=== PATIENT | female | born 1990 | race American Indian/Alaskan Native ===

== ENCOUNTER 2017-02-14 18:23 | Emergency (ER) | payer OTHER, BC ==
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
[2017-02-14 21:02] LABS: Bilirubin,Urine NEG (Negative); Blood,Urine LG (Negative); Ketones,Urine TR mg/dL (Negative); Leukocyte Esterase,Urine TR (Negative); Nitrite,Urine NEG (Negative)
[2017-02-14 21:20] LABS: Bacteria,Urine 2+ /HPF (Negative); RBC,Urine > 182.0 /HPF (0.0-6.0)
[2017-02-14 22:12] VITALS: BP 114/70
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
== END 2017-02-14 22:25 | disposition home or self-care (01) ==
LOC: ED 18:23
DX: S86.911A Strain of unspecified muscle(s) and tendon(s) at lower leg level, right leg, initial encounter (principal); S20.211A Contusion of right front wall of thorax, initial encounter; V49.49XA Driver injured in collision with other motor vehicles in traffic accident, initial encounter; Y93.9 Activity, unspecified; Y92.9 Unspecified place or not applicable; Y99.9 Unspecified external cause status
CPT/HCPCS: 71010; 81001; 81025; 99283

== ENCOUNTER 2017-12-27 04:58 | Emergency (ER) | payer BC, OTHER ==
[2017-12-27 05:13] VITALS: BP 117/78
[2017-12-27] MEDS ORDERED: MOTRIN PO ONE (05:43)
[2017-12-27] MEDS ORDERED: CLEOCIN PO ONE (05:43)
--- NOTE | 2017-12-27 05:43 | Emergency Department Report ---
ED ENT HPI - General Chief complaint: Dental/Oral Stated complaint: TOOTHACHE,HEADACHE Time Seen by Provider: 12/27/17 05:26 Source: patient Mode of arrival: Ambulatory Limitations: No Limitations - History of Present Illness Initial comments: Patient here complaining of toothache to her left lower back tooth out 4 days. She says she has an appointment with a dentist but she couldn't wait because she is having pain 10 out of 10 that is achy and throbbing. Patient also reports that she feels like the pain is gone up to her left side of her head. Denies any injury or trauma. Denies any dizziness or blurred vision. Denies any nausea or vomiting. No alleviating factor either after trying Motrin, Aleve and Tylenol. Pain exacerbated by talking to needed. Denies any sore throat or drooling. Denies this on the tongue. Denies any facial swelling. Patient says she had wisdom. Along the right side in the past and she thinks she needs some work done on her wisdom tooth on the left side. Denies any respiratory symptoms. Denies any chest pain. Denies any nasal congestion or runny nose. MD complaint: tooth pain Onset/Timin -: days(s) Location: tooth # (left lower back tooth) Severity: severe Severity scale (0 -10): 10 Quality: aching, other (throbbing) Consistency: constant Improves with: none Worsens with: eating, movement, other (talking) Context- Dental: other (history of similar) Associated Symptoms: toothache, other (pain radiating from left tooth to the left side of head). denies: fever, cough, gum swelling, pain with swallowing, sore throat, tinnitus, hearing loss, discharge from ear, rhinorrhea - Related Data Previous Rx's Medication Instructions Recorded Last Taken Type Acetaminophen/Codeine [Tylenol 1 tab PO Q6H PRN #12 tab 12/27/17 Unknown Rx /Codeine # 3 tab] Clindamycin HCl 300 mg PO Q8H 10 Days #30 capsule 12/27/17 Unknown Rx Ibuprofen [Motrin] 600 mg PO Q8H PRN #15 tablet 12/27/17 Unknown Rx Allergies Allergy/AdvReac Type Severity Reaction Status Date / Time No Known Allergies Allergy Verified 12/27/17 05:13 ED Dental HPI - General Chief complaint: Dental/Oral Stated complaint: TOOTHACHE,HEADACHE Time Seen by Provider: 12/27/17 05:26 Source: patient Mode of arrival: Ambulatory Limitations: No Limitations - Related Data Previous Rx's Medication Instructions Recorded Last Taken Type Acetaminophen/Codeine [Tylenol 1 tab PO Q6H PRN #12 tab 12/27/17 Unknown Rx /Codeine # 3 tab] Clindamycin HCl 300 mg PO Q8H 10 Days #30 capsule 12/27/17 Unknown Rx Ibuprofen [Motrin] 600 mg PO Q8H PRN #15 tablet 12/27/17 Unknown Rx Allergies Allergy/AdvReac Type Severity Reaction Status Date / Time No Known Allergies Allergy Verified 12/27/17 05:13 ED Review of Systems ROS: Stated complaint: TOOTHACHE,HEADACHE Other details as noted in HPI Constitutional: denies: chills, fever Eyes: denies: eye pain, eye discharge, vision change ENT: dental pain. denies: ear pain, throat pain, epistaxis, congestion Respiratory: denies: cough, shortness of breath, SOB with exertion, SOB at rest , wheezing Cardiovascular: denies: chest pain, palpitations Gastrointestinal: denies: abdominal pain, nausea, diarrhea Musculoskeletal: denies: back pain, arthralgia Skin: denies: rash, lesions Neurological: headache (radiated from left tooth to the left side of head), paresthesias. denies: weakness Psychiatric: denies: depression ED Past Medical Hx - Past Medical History Previous Medical History?: No - Surgical History Past Surgical History?: No - Family History Family history: hypertension - Social History Smoking Status: Never Smoker Substance Use Type: None Other Social History: Single - Medications Home Medications: Home Medications Medication Instructions Recorded Confirmed Last Taken Type Acetaminophen/Codeine [Tylenol 1 tab PO Q6H PRN #12 tab 12/27/17 Unknown Rx /Codeine # 3 tab] Clindamycin HCl 300 mg PO Q8H 10 Days #30 capsule 12/27/17 Unknown Rx Ibuprofen [Motrin] 600 mg PO Q8H PRN #15 tablet 12/27/17 Unknown Rx ED Physical Exam - General Limitations: No Limitations General appearance: alert, in no apparent distress - Head Head exam: Present: atraumatic, normocephalic, normal inspection, other (normal exam) - Eye Eye exam: Present: normal appearance, PERRL, EOMI Pupils: Present: normal accommodation - ENT ENT exam: Present: normal orophraynx, mucous membranes moist, TM's normal bilaterally, normal external ear exam - Expanded ENT Exam Expanded Ear exam: Present: normal external inspection. Absent: auricular hematoma, auricular trauma Mouth exam: Present: normal external inspection, tongue normal. Absent: drooling, trismus, muffled voice Teeth exam: Present: dental caries (bilateral), dental tenderness # (#17), other (no facial swelling). Absent: fractured tooth #, gingival enlargement 1 - Dental Tenderness (some [place]) Throat exam: Positive: normal inspection. Negative: tonsillar erythema, tonsillomegaly, tonsillar exudate, R peritonsillar mass, L peritonsillar mass - Neck Neck exam: Present: normal inspection, tenderness, full ROM, other (C-spine tenderness). Absent: lymphadenopathy - Respiratory Respiratory exam: Present: normal lung sounds bilaterally. Absent: respiratory distress, chest wall tenderness - Cardiovascular Cardiovascular Exam: Present: regular rate, normal rhythm, normal heart sounds - GI/Abdominal GI/Abdominal exam: Present: soft, normal bowel sounds. Absent: tenderness - Extremities Exam Extremities exam: Present: normal inspection, full ROM, normal capillary refill , other (no clubbing, cyanosis or edema. +2 pulses all extremities and no neurovascular compromise). Absent: tenderness, pedal edema, joint swelling, calf tenderness - Back Exam Back exam: Present: normal inspection, full ROM. Absent: tenderness - Neurological Exam Neurological exam: Present: alert, oriented X3, normal gait, reflexes normal, other (no gross focal deficit). Absent: motor sensory deficit - Psychiatric Psychiatric exam: Present: normal affect, normal mood - Skin Skin exam: Present: warm, dry, intact, normal color. Absent: rash ED Course Vital Signs 12/27/17 12/27/17 05:09 05:55 Temperature 98.1 F Pulse Rate 84 Respiratory 18 18 Rate Blood Pressure 117/78 Blood Pressure 117/78 [Right] O2 Sat by Pulse 98 Oximetry - Reevaluation(s) Reevaluation #1: 12/27/17 06:32 Given Motrin 800 mg by mouth for her toothache and clindamycin empirically for dental tenderness. ED Medical Decision Making - Medical Decision Making ED course Diagnosis 1: toothache-patient given Motrin 800 mg which brought her pain onto. 10. Pain is better and plan discharged home on pain medicine 2: Dental caries and dental tenderness at tooth #17-patient plans to follow up with a dentist next week for evaluation and treatment. Patient given clindamycin 600 mg by mouth in emergency room and will discharge home with clindamycin. Patient stable throughout ED stay and she voiced understanding of medication, diagnosis, treatment plan and need to follow up with dentist to events worsening infection, gum disease and infection and blood and heart valves. Referral to [facility] dental clinic even though she has her own dentist. Education on Flossing and using mouthwash twice daily Vital signs are stable and she is afebrile prior to discharge Discharged from emergency room in stable condition with prescription for clindamycin, Tylenol No. 3 and Motrin Critical care attestation.: If time is entered above; I have spent that time in minutes in the direct care of this critically ill patient, excluding procedure time. ED Disposition Clinical Impression: Dental caries, Tooth ache Disposition: DC-01 TO HOME OR SELFCARE Is pt being admited?: No Does the pt Need Aspirin: No Condition: Stable Instructions: Toothache (ED), Dental Caries (ED) Additional Instructions: Please follow up with a dentist as instructed. See other referral to dental clinic if you cannot get into the one that he made appointment for Take Motrin for mild to moderate pain Tylenol 3 for moderate to severe pain or please do not drive or operate heavy machinery while taking this medication. FLoss and gargle with Listerine twice daily Take antibiotic as prescribed Prescriptions: Acetaminophen/Codeine [Tylenol /Codeine # 3 tab] 1 tab PO Q6H PRN #12 tab PRN Reason: moderate to severe pain Clindamycin HCl 300 mg PO Q8H 10 Days #30 capsule Ibuprofen [Motrin] 600 mg PO Q8H PRN #15 tablet PRN Reason: Pain Referrals: PRIMARY CARE, [Primary Care Provider] - 2-3 Days [facility] [Outside] - 3-5 Days Forms: Work/School Release Form(ED)
== END 2017-12-27 07:09 | disposition home or self-care (01) ==
LOC: ED 04:58
DX: K02.9 Dental caries, unspecified (principal)
CPT/HCPCS: 99282